=== PATIENT | male | born 1960 | race Caucasian/White ===

== ENCOUNTER 2016-10-02 15:10 | Emergency (ER) | payer OTHER | END 2016-10-02 17:25 | disposition home or self-care (01) | LOC: ER 15:10 | DX: G51.0 Bell's palsy (principal); E11.9 Type 2 diabetes mellitus without complications; Z85.038 Personal history of other malignant neoplasm of large intestine; Z90.49 Acquired absence of other specified parts of digestive tract; F17.210 Nicotine dependence, cigarettes, uncomplicated ==